=== PATIENT | female | born 1935 | race African-American/Black ===

== ENCOUNTER 2017-02-01 00:32 | Emergency (ER) | payer MEDICARE, OTHER ==
[~2017-02-01] VITALS: Ht 162.6 cm; Wt 47.0 kg
[~2017-02-01 00:32] MED LIST: AMLO10TA4 PO; ASPI-1158 PO; CYCL5TAB10 PO; DOCU-138 PO; FURO-152 PO; GABA100C PO; METO50TA95 PO; OMEP20CA10 PO; SIMV5TAB53 PO; TRAM50TA3 PO
[2017-02-01 01:30] VITALS: BP 158/63
== END 2017-02-01 01:36 | disposition home or self-care (01) ==
LOC: ER 00:32
DX: L30.9 Dermatitis, unspecified (principal); I10 Essential (primary) hypertension
CPT/HCPCS: 99283